=== PATIENT | male | born 1930 | race Caucasian/White ===

== ENCOUNTER 2017-07-08 18:13 | Emergency (ER) | payer OTHER ==
[~2017-07-08] VITALS: Ht 175.3 cm; Wt 61.0 kg
[~2017-07-08 18:13] MED LIST: ACETAMINOPHEN325 M1 PO; ALOE VERA-LIDO227 GM TP; AMLODIPINE BESY10 MG PO; AUGMENTIN875 MG PO; BENEFIBER236 GM PO; BUSPIRONE HCL10 MG PO; BUSPIRONE HCL15 MG PO; CETIRIZINE HCL10 M2 PO; CLOBETASOL PROP60 GM TP; DAILY VITE1 EAC1 PO; DOCUSATE SODIU100 MG PO; EAR WAX REMOVAL15 ML BOTH EARS; FINASTERIDE5 MG PO; LOVASTATIN40 MG PO; MUCINEX D ER T1 EACH PO; NASONEX17 GM BOTH NARES; ONDANSETRON ODT4 MG PO; PREPARATION H C51 G1 PR; PRINIVIL20 MG PO; PROAIR HFA8.5 GM IH; Q-TUSSIN DM SY240 ML PO; SELENIUM SULFI180 ML TP; VALIUM10 MG PO; WOMEN'S LAXATIVE5 M1 PO; ZANTAC150 MG PO
[2017-07-08 20:05] LABS: BASOPHIL (%) 0.5 % (0-1); BASOPHIL COUNT 0.1 K/uL (0-0.1); EOSINOPHIL (%) 1.9 % (0-5); EOSINOPHIL COUNT 0.2 K/uL (0-0.3); HEMATOCRIT 30.5 % (38.0-50.0); HEMOGLOBIN 10.1 G/DL (12.5-16.6); IMMATURE GRANULOCYTE (%) 0.5 % (0.0-0.7); LYMPHOCYTE (%) 11.1 % (15-42); LYMPHOCYTE COUNT 1.2 K/uL (1.0-2.8); MCH 31.1 PG (29.0-34.0); MCHC 33.1 G/DL (30.0-36.0); MCV 93.8 FL (86-99); MONOCYTE COUNT 1.3 K/uL (0-0.8); NEUTROPHIL COUNT 8.2 K/uL (1.8-6.4); PLATELET COUNT 212 K/uL (156-360); RBC DIS.WIDTH-SD 48.1 % (39-53); RED BLOOD COUNT 3.25 M/uL (4.00-5.50)
[2017-07-08 20:16] LABS: ALBUMIN 4.1 g/dL (3.2-4.8); CHLORIDE 117 mEq/L (99-109); POTASSIUM 4.8 mEq/L (3.7-5.4); SODIUM 143 mEq/L (136-147)
[2017-07-08 20:19] LABS: GLUCOSE 79 mg/dL (70-99); TOTAL PROTEIN 6.9 g/dL (6.4-8.3)
[2017-07-08 20:21] LABS: TOTAL BILIRUBIN 0.3 mg/dL (0.0-1.0)
[2017-07-08 20:22] LABS: CREATININE 2.3 mg/dL (0.6-1.3); GFR ESTIMATE (CALCULATED) 29 mL/min/ (58.99-99999); SERUM ETHYL ALCOHOL < 10 mg/dL
[2017-07-08 20:23] LABS: ALKALINE PHOSPHATASE 74 IU/L (3-129)
[2017-07-08 20:24] LABS: AST (GOT) 19 IU/L (2-34); UREA NITROGEN (BUN) 48 mg/dL (9-23)
[2017-07-08 20:26] LABS: ALT (GPT) 16 IU/L (3-49); SALICYLATE < 5.0 MG/DL (15-30)
[2017-07-08 20:28] LABS: TROP-I INTERPRETATION NEGATIVE; TROPONIN-I 0.02 ng/mL (0.0-0.30)
[2017-07-08 21:03] LABS: APPEARANCE CLEAR ((CLEAR)); BILIRUBIN NEGATIVE; BLOOD NEGATIVE; COLOR YELLOW ((YELLOW)); GLUCOSE (STRIP) NEGATIVE; KETONES 5; LEUKOCYTES NEGATIVE; NITRITE NEGATIVE; PROTEIN (STRIP) NEGATIVE; SPECIFIC GRAVITY 1.021 (1.000-1.030); UCUL ADDED? NO; UROBILINOGEN 0.2 MG/DL (0.2-1.0)
[2017-07-08 21:12] LABS: AMPHETAMINE NEGATIVE (500 ng/mL); BARBITURATES NEGATIVE (200 ng/mL); BENZODIAZEPINES NEGATIVE (150 ng/mL); BUPRENORPHINE NEGATIVE (10 ng/mL); COCAINE NEGATIVE (150 ng/mL); METHADONE NEGATIVE (200 ng/mL); METHAMPHETAMINE NEGATIVE (500 ng/mL); OPIATES (MORPHINE) NEGATIVE (100 ng/mL); OXYCODONE NEGATIVE (100 ng/mL); PHENCYCLIDINE NEGATIVE (25 ng/mL); PROPOXYPHENE NEGATIVE (300 ng/mL); THC CANNABINOIDS NEGATIVE (50 ng/mL); TRICYCLIC ANTIDEPRESSANTS NEGATIVE (300 ng/mL)
[2017-07-08 21:19] LABS: THYROTROPIN (TSH) 1.7 MIU/L (0.4-5.5)
[2017-07-09 01:31] VITALS: BP 113/55
== END 2017-07-09 01:35 | disposition home or self-care (01) ==
LOC: EME 18:13
PROVIDERS: Emergency Medicine Emergency Medical Services
DX: E86.0 Dehydration (principal); N17.9 Acute kidney failure, unspecified; R41.82 Altered mental status, unspecified; I67.82 Cerebral ischemia; I49.1 Atrial premature depolarization; R94.31 Abnormal electrocardiogram [ECG] [EKG]; I10 Essential (primary) hypertension; E11.9 Type 2 diabetes mellitus without complications; E78.5 Hyperlipidemia, unspecified; Z86.19 Personal history of other infectious and parasitic diseases; Z88.8 Allergy status to other drugs, medicaments and biological substances
CPT/HCPCS: 70450; 71045; 80053; 81003; 83605; 84443; 84484; 85025; 87040; 93005; 99281; 99285; G0480; J7030